=== PATIENT | male | born 1990 | race Caucasian/White ===

== ENCOUNTER → 2024-09-26 10:14 | Outpatient (CLI) | payer OTHER, SELFPAY ==
[2024-09-26 11:09] LABS: Cholesterol 250 mg/dL (140-199); HDL Cholesterol 59 mg/dL (40-60); LDL Cholesterol Calculated 146 mg/dL (<100); Triglycerides 225 mg/dL (35-150)
[2024-09-26 11:24] LABS: Free T4, Direct Thyroxine 0.87 ng/dL (0.78-2.19)
[2024-09-26 11:38] LABS: Thyroid Stimulating Hormone 3.17 uIU/mL (0.47-4.68)
== END ==
PROVIDERS: Referring Provider Internal Medicine Cardiovascular Disease; Visit Provider Internal Medicine Cardiovascular Disease
DX: R00.2 Palpitations (principal)
CPT/HCPCS: 36415; 80061; 84439; 84443

== ENCOUNTER → 2024-10-27 08:18 | Outpatient (CLI) | payer OTHER, SELFPAY ==
--- NOTE | 2024-11-02 14:29 | DI.NM.S_ITS ---
DATE OF SERVICE: 10/27/2024 PROCEDURE: Exercise stress test. INDICATIONS: Palpitations, shortness of breath. CARDIAC STRESS: The patient underwent exercise stress test under the supervision of an attending staff. The patient walked on Korey protocol for 9 minutes and 32 seconds, achieved 10.1 METs of workload, 95% of target heart rate with maximum heart rate 174 and JOSE positive 25%. Resting blood pressure 122/84 and peak blood pressure 170/94. Baseline rhythm sinus. During stress, no convincing ischemic changes seen. No significant arrhythmias. No chest pain. He had significant shortness of breath. Normal recovery. CONCLUSION: Exercise stress test is negative for inducible ischemia. Diminished exercise tolerance. Overall, normal hemodynamic response. No chest pain or significant arrhythmias. He had shortness of breath. The patient's weight is 275 pounds. As far as exercise stress test is concerned, low-risk exercise stress test. Betzaida Parminder - HAILMA/eugenio/KIARA doc#: [id number]/job#: [id number] dd: 10/27/2024 17:11:00 dt: 10/27/2024 18:05:00 DICTATING /COPIES TO: Kelli Gold MD COPIES MNE: OLY;
== END ==
LOC: NUCM 08:19
PROVIDERS: Referring Provider Internal Medicine Cardiovascular Disease; Visit Provider Internal Medicine Cardiovascular Disease
DX: R00.2 Palpitations (principal)
CPT/HCPCS: 93017